=== PATIENT | male | born 1960 | race American Indian/Alaskan Native ===

== ENCOUNTER 2017-01-29 10:14 | Outpatient (CLI) | payer BC, OTHER ==
--- NOTE | 2017-01-29 14:05 | Cat Scan Report ---
CT of the abdomen and pelvis without contrast. History: Prostate carcinoma. Findings: The liver, spleen, pancreas, and gallbladder are normal. The kidneys are normal in size and configuration with no evidence of mass or hydronephrosis. The adrenal glands are normal. There is no adenopathy within the retroperitoneum. The prostate is mildly enlarged. No additional pelvic masses are seen. There is no mesenteric inflammation. No significant bony findings are seen. Impression: Prostatic enlargement, otherwise unremarkable study.
--- NOTE | 2017-01-29 16:46 | Nuclear Medicine Report ---
Nuclear Bone scan. History: Prostate cancer. Findings: The activity pattern throughout the axial and appendicular skeleton is normal. Renal activity is noted bilaterally. Impression: Normal study.
== END 2017-01-29 10:15 | disposition home or self-care (01) ==
LOC: NM 10:14
PROVIDERS: ATTEND Urology
DX: C61 Malignant neoplasm of prostate (principal); N40.0 Benign prostatic hyperplasia without lower urinary tract symptoms
CPT/HCPCS: 74176; 78306; A9503

== ENCOUNTER 2020-12-29 06:14 | Observation (INO) | payer BC, OTHER ==
[2020-12-29 07:29] LABS: Basophils % (Auto) 1.1 % (0.0-1.8); Eosinophils # (Auto) 0.2 K/mm3 (0.0-0.4); Hematocrit 43.7 % (35.5-45.6); Hemoglobin 14.3 gm/dl (11.8-15.2); Lymphocytes # (Auto) 1.7 K/mm3 (1.2-5.4); Lymphocytes % (Auto) 38.5 % (13.4-35.0); Mean Corpuscular HGB Conc 33 % (32-34); Mean Corpuscular Volume 85 fl (84-94); Monocytes # (Auto) 0.4 K/mm3 (0.0-0.8); Monocytes % (Auto) 9.9 % (0.0-7.3); Platelet Count 191 K/mm3 (140-440); Red Blood Count 5.13 M/mm3 (3.65-5.03); Red Cell Distribution Width 13.6 % (13.2-15.2)
[2020-12-29 07:39] LABS: INR 1.01 (0.87-1.13)
[2020-12-29 07:40] LABS: Partial Thromboplastin Time 31.2 Sec. (24.2-36.6)
[2020-12-29 07:52] LABS: BUN/Creatinine Ratio 17; Blood Urea Nitrogen 15 mg/dL (9-20); Calcium 8.9 mg/dL (8.4-10.2); Hemolysis Index 58
[2020-12-29] MEDS ORDERED: ceFAZolin/Water 2 GM/20 ML 2 GM/20 ML SYRINGE IV ONE (08:05)
[2020-12-29] MEDS: SODIUM CHLORIDE 0.9% 1000 ML 1,000 ML IV SCH (08:10)
--- NOTE | 2020-12-29 10:59 | Cat Scan Report ---
CT ABDOMEN AND PELVIS WITH CONTRAST HISTORY: MAIN. Evaluate left renal mass, here for cryoablation COMPARISON: CT abdomen/pelvis from 01/29/2017 TECHNIQUE: CT images of the abdomen and pelvis were obtained following administration of intravenous contrast. All CT scans at this location are performed using CT dose reduction for ALARA by means of automated exposure control. CONTRAST: 100 ml of intravenous contrast administered. FINDINGS: Lungs/bones: Lung bases are clear. There are degenerative changes in the spine and pelvis with no ac ame osseous abnormality identified. Abdomen/pelvis: There is a left sided solid renal mass measuring 2.3 x 1.9 x 2.3 centimeters in maxi mal AP, transverse, and craniocaudal dimensions in the midpole region on image 77 of series #2 and im age 72 of series 601. No other mass is identified. No regional adenopathy or obvious involvement of t he renal vein. The kidneys otherwise appear unremarkable. The liver, gallbladder, spleen, pancreas, adrenals, and proximal GI tract appear unremarkable. Prostate is enlarged and indents the bladder base. Bladder is otherwise unremarkable. No pelvic free fluid. There is mild diverticulosis in the colon with no acute inflammatory change. The terminal ileu m and appendix appear normal. IMPRESSION: 1. Left-sided solid renal mass worrisome for RCC as outlined above. No metastatic disease identified. Signer Name: Anam Butler MD Signed: 12/29/2020 10:55 AM Workstation Name: [email or web address]
[2020-12-29] MEDS ORDERED: PROMETHAZINE 25 MG RECT SUPP PR PRN (11:08)
[2020-12-29] MEDS ORDERED: NALOXONE 0.4 MG/1 ML INJ IV PRN (11:08)
[2020-12-29] MEDS ORDERED: diphenhydrAMINE 50 MG/ML VIAL IV PRN (11:08)
[2020-12-29] MEDS ORDERED: ONDANSETRON 4 MG/2 ML INJ IV PRN (11:08)
--- NOTE | 2020-12-29 11:11 | Short Stay Summary ---
Short Stay Documentation Date of service: 12/29/20 - History Principal diagnosis: Left renal cell carcinoma H&P: obtained from office - Allergies and Medications Current Medications: Allergies No Known Allergies Allergy (Unverified 01/29/17 10:14) Home Medications Medication Instructions Recorded Confirmed Last Taken Type Cetirizine HCl 10 mg PO DAILY 12/29/20 12/29/20 12/27/20 History 10 mg Fluticasone [Flonase] 1 spray INNOSTRIL DAILY 12/29/20 12/29/20 12/28/20 History 1 spray Meloxicam [Mobic] 15 mg PO DAILY 12/29/20 12/29/20 12/27/20 History 15 mg Tamsulosin [Flomax] 0.4 mg PO DAILY 12/29/20 12/29/20 12/27/20 History 0.4mg Active Medications Sodium Chloride (Nacl 0.9% 1000 Ml) 1,000 mls @ 42 mls/hr IV DIRECT MARTHA Last Admin: 12/29/20 08:10 Dose: 42 mls/hr Documented by: - Brief post op/procedure progress note Date of procedure: 12/29/20 Pre-op diagnosis: Left renal cell carcinoma Post-op diagnosis: same Procedure: Renal mass cryoablation Anesthesia: local Surgeon: MJ IBANEZ Estimated blood loss: none Pathology: none Condition: stable - Disposition Condition at discharge: Good Disposition: DC/TX-02 [id number]-TRM GEN HOSP IP Short Stay Discharge Plan Activity: advance as tolerated Weight Bearing Status: Weight Bear as Tolerated Diet: regular Wound: keep clean and dry, per your surgeon's advice Follow up with: BELKIS CRESPO MD [Primary Care Provider] - 7 Days
--- NOTE | 2020-12-29 11:16 | Operative Report ---
Operative Report Operative Report: Exam: Left renal mass cryoablation Clinical indication: Patient with a history of left renal mass with imaging findings on MRI and CT consistent with renal cell carcinoma. Procedure has been delayed secondary to COVID-19 pandemic. Date: 12/29/2020 Procedure: Following an explanation of the risk, benefits and alternatives; written informed consent was obtained. The patient was brought to the CT suite and placed in prone position on the gantry. An initial CT scan of the abdomen and pelvis was performed with IV contrast for tumor localization and sizing criteria. The patient was noted to have a 1.8 to 1.9 cm exophytic posterior mass arising from the midpole of his left kidney. No adjacent structures were identified being in danger of damage during cryoablation. The patient was then removed from the CT scanner. Following the induction of anesthesia. The patient was returned to the CT scanner and placed in prone position once again. Initial cigarette book maker images of the back and flank were performed and an appropriate access site was chosen. The patient was prepped and draped in the usual sterile fashion. 1% lidocaine was used for anesthesia. Under ultrasound guidance, a 21-gauge 15 cm needle was used for localization and advanced under CT guidance to the center aspect of the left renal cell mass. On ce localization was complete. A 14gauge cryoablation probe was then advanced to the margin of the renal mass. Using intermittent CT guidance, the probe was advanced into the mass with the tip of the probe on the medial side of the mass. Imaging was confirmed with CT guidance. With the probe in position. An initial 10-minute freeze cycle was initiated. At approximately the 6-minute brody, surveillance CT scan was performed which demonstrated the anterior posterior and lateral aspects of the mass were well within the ice ball. The ice ball came to the margin of the mass immediately. After the thaw cycle, the probe was repositioned medially 1/2 cm and a second 10-minute freeze cycle initiated. Surveillance imaging demonstrated appropriate coverage of the entire tumor. Following cryoablation, the probe was withdrawn approximately 2 cm proximally and hemostasis achieved using the cautery function of the cryoablation probe. The probe was then removed intact. Posttreatment images demonstrated appropriate treatment with no significant perinephric hematoma. The patient tolerated the procedure well. There were no immediate postprocedure complications. During the second freeze cycle, the patient experienced two episodes of bigeminy. Anesthesia was provided by anesthesia services. Continuous cardiopulmonary monitoring was utilized. Impression: 1) Left renal mass cryoablation as described.
[2020-12-29] MEDS ORDERED: MORPHINE/NS 30 MG-30 ML PCA INJ IV SCH (12:00)
[2020-12-29] MEDS ORDERED: ALBUTEROL 2.5 MG/3 ML NEBU IH PRN (12:13)
--- NOTE | 2020-12-29 12:15 | History and Physical Report ---
History of Present Illness Chief complaint: They said my heart not beating normally History of present illness: 60 YO Male with Obesity, RITA, OA admitted directly postoperatively. Pt was found to have an abnormal cardiac rhythm. Pt seen and evaluated in his room. Pt denies fever, chills, CP, palpitations, NVD, Trauma, productive cough, skin rash, or recent ill contacts. No reported nursing events. Pt denies pain. Past History Past Medical History: other (see HPI) Past Surgical History: Other (Left renal cryoablation) Social history: . denies: smoking, alcohol abuse, prescription drug abuse Family history: hypertension Medications and Allergies Allergies Allergy/AdvReac Type Severity Reaction Status Date / Time No Known Allergies Allergy Unverified 01/29/17 10:14 Home Medications Medication Instructions Recorded Confirmed Last Taken Type Cetirizine HCl 10 mg PO DAILY 12/29/20 12/29/20 12/27/20 History 10 mg Ciprofloxacin HCl [Ciprofloxacin 750 mg PO QDAY #7 tablet 12/29/20 Unknown Rx TAB] Fluticasone [Flonase] 1 spray INNOSTRIL DAILY 12/29/20 12/29/20 12/28/20 History 1 spray Meloxicam [Mobic] 15 mg PO DAILY 12/29/20 12/29/20 12/27/20 History 15 mg Ondansetron [Zofran Odt] 4 mg PO Q8HR PRN #20 tab.rapdis 12/29/20 Unknown Rx Tamsulosin [Flomax] 0.4 mg PO DAILY 12/29/20 12/29/20 12/27/20 History 0.4mg oxyCODONE /ACETAMINOPHEN [Percocet 1 tab PO Q6HR PRN #30 tablet 12/29/20 Unknown Rx 5/325] Active Meds: Active Medications Albuterol (Albuterol 2.5 Mg/3 Ml Nebu) 2.5 mg IH Q3HRT PRN PRN Reason: Shortness Of Breath Diphenhydramine HCl (Diphenhydramine 50 Mg/Ml Vial) 25 mg IV Q4H PRN PRN Reason: Itching Sodium Chloride (Nacl 0.9% 1000 Ml) 1,000 mls @ 42 mls/hr IV DIRECT MARTHA Last Admin: 12/29/20 08:10 Dose: 42 mls/hr Documented by: Morphine Sulfate (Morphine/Ns 30 Mg-30 Ml Manager Of Marketing Inj) 0 mg IV DIRECT MARTHA; Protocol Naloxone HCl (Naloxone 0.4 Mg/1 Ml Inj) 0.1 mg IV Q2MIN PRN PRN Reason: Res Rate </= 8 or 02 SAT < 92% Ondansetron HCl (Ondansetron 4 Mg/2 Ml Inj) 4 mg IV Q8H PRN PRN Reason: N/V unrelieved by Reglan Promethazine HCl (Promethazine 25 Mg Rect Supp) 25 mg MD Q6H PRN PRN Reason: Nausea And Vomiting Senna/Docusate Sodium (Sennosides/Docusate Sodium 8.6/50 Mg Tab) 1 tab PO BID MARTHA Sodium Chloride (Sodium Chloride 0.9% 10 Ml Flush Syringe) 10 ml IV BID MARTHA Sodium Chloride (Sodium Chloride 0.9% 10 Ml Flush Syringe) 10 ml IV PRN PRN PRN Reason: LINE FLUSH Review of Systems Constitutional: no weight loss, no weight gain, no fever, no chills, no sweats Ears, nose, mouth and throat: no ear pain, no decreased hearing, no nose pain, no nasal congestion, no nasal discharge Cardiovascular: no chest pain, no orthopnea, no palpitations, no rapid/irregular heart beat, no edema, no syncope Respiratory: no cough, no cough with sputum, no excessive sputum, no hemoptysis Gastrointestinal: no abdominal pain, no nausea, no constipation, no hematemesis Genitourinary Male: no hematuria, no flank pain, no discharge Rectal: no pain, no incontinence, no bleeding Musculoskeletal: no neck stiffness, no neck pain, no shooting arm pain, no shooting leg pain, no leg numbness/tingling Integumentary: no rash, no pruritis, no redness, no sores Neurological: no paralysis, no weakness, no parathesias, no tingling, no seizures Psychiatric: no anxiety, no memory loss, no sleep disturbances, no insomnia, no hypersomnia, no change in appetite, no change in libido Endocrine: no cold intolerance, no heat intolerance, no excessive thirst, no polydipsia, no nocturia, no flushing Hematologic/Lymphatic: no easy bruising, no easy bleeding Allergic/Immunologic: no urticaria, no allergic rhinitis Exam - Constitutional Vitals: Temp Pulse Resp BP Pulse Ox 98.3 F 59 L 16 109/70 98 12/29/20 07:46 12/29/20 09:39 12/29/20 09:39 12/29/20 09:39 12/29/20 09:39 General appearance: Present: no acute distress, well-nourished - EENT Eyes: Present: PERRL ENT: hearing intact, clear oral mucosa - Neck Neck: Present: supple, normal ROM - Respiratory Respiratory effort: normal Respiratory: bilateral: CTA - Cardiovascular Heart Sounds: Present: S1 & S2. Absent: rub, click - Extremities Extremities: pulses symmetrical, No edema Peripheral Pulses: within normal limits - Abdominal General gastrointestinal: Present: soft, non-tender, non-distended, normal bowel sounds Male genitourinary: Present: normal - Integumentary Integumentary: Present: clear, warm, dry - Musculoskeletal Musculoskeletal: gait normal, strength equal bilaterally - Psychiatric Psychiatric: appropriate mood/affect, intact judgment & insight - Neurologic Neurologic: CNII-XII intact, moves all extremities Results - Labs CBC & Chem 7: 12/29/20 07:11 12/29/20 07:11 Labs: Abnormal lab results 12/29/20 12/29/20 Range/Units 07:11 07:11 WBC 4.3 L (4.5-11.0) K/mm3 RBC 5.13 H (3.65-5.03) M/mm3 Lymph % (Auto) 38.5 H (13.4-35.0) % [place] % (Auto) 9.9 H (0.0-7.3) % Eos % (Auto) 5.0 H (0.0-4.3) % Glucose 117 H (75-100) mg/dL Assessment and Plan - Patient Problems (1) Atrial bigeminy Current Visit: No Status: Acute Plan to address problem: Cardiology consulted, continue medical management as per cardiology team. (2) Obesity Current Visit: Yes Status: Acute Plan to address problem: balanced diet, increased physical activity at discharge. (3) RITA (obstructive sleep apnea) Current Visit: Yes Status: Acute Plan to address problem: CPAP qhs, supportive care. (4) DVT prophylaxis Current Visit: Yes Status: Acute Plan to address problem: SCD to BLE while in bed.
--- NOTE | 2020-12-29 18:16 | Event Note ---
Date: 12/29/20 Twelve-lead EKG shows a sinus bradycardia with nonspecific early repolarization ST changes, no ischemia or infarction. Continued remote telemetry monitoring, and avoid AV robe blocking agents.
[2020-12-29] MEDS: SENNOSIDES/DOCUSATE SODIUM 8.6/50 MG TAB PO SCH (21:57)
[2020-12-30] MEDS: SODIUM CHLORIDE 0.9% 1000 ML 1,000 ML IV SCH (05:29)
[2020-12-30] MEDS: SENNOSIDES/DOCUSATE SODIUM 8.6/50 MG TAB PO SCH (09:42)
[2020-12-30] MEDS ORDERED: TAMSULOSIN 0.4 MG CAP PO SCH (10:00)
[2020-12-30] MEDS ORDERED: CETIRIZINE 10 MG TAB PO SCH (10:00)
--- NOTE | 2020-12-30 11:57 | Progress Note ---
Assessment and Plan Transient ectopic beats post operatively Status post left renal mass cryoablation 12-lead EKG shows a sinus bradycardia with nonspecific early repolarization ST changes, no ischemia or infarction. Recommendations: Avoid AV robe blocking agents. Otherwise, conservative cardiac management. Subjective Date of service: 12/30/20 Principal diagnosis: Left renal cell carcinoma Interval history: Patient 1 day post left renal mass cryoablation. He is resting in bed and appears comfortable. No cardiac complaints. Telemetry currently shows sinus rhythm, rate 59. Objective Vital Signs Temp Pulse Pulse Resp Resp BP BP 12/30/20 10:00 57 L 10 L 129/75 12/30/20 09:00 62 15 114/68 12/30/20 08:00 49 L 59 L 13 130/78 12/30/20 07:00 49 L 11 L 125/75 12/30/20 06:00 48 L 16 129/75 12/30/20 05:00 48 L 12 133/72 12/30/20 04:10 52 L 12/30/20 04:00 49 L 49 L 16 118/73 12/30/20 03:52 97.2 F L 12/30/20 03:00 49 L 11 L 118/73 12/30/20 02:00 49 L 13 126/75 12/30/20 01:00 52 L 52 L 11 L 122/64 12/30/20 00:00 49 L 12 131/72 12/29/20 23:40 56 L 12/29/20 23:39 98.0 F 12/29/20 23:04 57 L 22 134/77 12/29/20 23:00 51 L 16 134/77 12/29/20 22:02 16 12/29/20 22:00 59 L 12 147/78 12/29/20 21:00 53 L 12 146/81 12/29/20 20:00 97.6 F 54 L 12 143/75 12/29/20 19:59 16 12/29/20 19:54 55 L 16 12/29/20 19:50 16 12/29/20 19:45 55 L 12/29/20 19:00 52 L 15 135/76 12/29/20 18:00 54 L 14 136/77 12/29/20 17:00 56 L 13 139/65 12/29/20 16:00 99 F 51 L 16 141/79 12/29/20 15:00 53 L 13 134/73 12/29/20 14:58 16 12/29/20 14:00 51 L 18 132/73 12/29/20 13:15 97.8 F 53 L 15 128/76 12/29/20 13:00 51 L 10 L 127/67 12/29/20 12:45 49 L 12 131/75 12/29/20 12:30 57 L 12 124/69 12/29/20 12:15 52 L 11 L 133/70 12/29/20 12:00 50 L 12 141/75 Pulse Ox 12/30/20 10:00 97 12/30/20 09:00 96 12/30/20 08:00 95 12/30/20 07:00 95 12/30/20 06:00 98 12/30/20 05:00 98 12/30/20 04:10 12/30/20 04:00 95 12/30/20 03:52 12/30/20 03:00 94 12/30/20 02:00 97 12/30/20 01:00 97 12/30/20 00:00 95 12/29/20 23:40 12/29/20 23:39 12/29/20 23:04 97 12/29/20 23:00 96 12/29/20 22:02 12/29/20 22:00 97 12/29/20 21:00 98 12/29/20 20:00 96 12/29/20 19:59 12/29/20 19:54 96 12/29/20 19:50 12/29/20 19:45 12/29/20 19:00 96 12/29/20 18:00 97 12/29/20 17:00 97 12/29/20 16:00 97 12/29/20 15:00 95 12/29/20 14:58 12/29/20 14:00 97 12/29/20 13:15 96 12/29/20 13:00 99 12/29/20 12:45 98 12/29/20 12:30 97 12/29/20 12:15 98 12/29/20 12:00 99 - Physical Examination General: No Apparent Distress HEENT: Positive: PERRL Neck: Positive: trachea midline Cardiac: Positive: Reg Rate and Rhythm Lungs: Positive: Normal Breath Sounds Neuro: Positive: Grossly Intact
--- NOTE | 2020-12-30 13:33 | Electrocardiograph Report ---
[facility] Test Date: 2020-12-29 Test Time: 11:32:31 Pat Name: ERVIN FLOWERS Department: Room: A264 Gender: M Drafter Mechanical: ARIANNA : 1960 Requested By: MJ IBANEZ Order Number: [id number] Reading MD: Jed Cordero Measurements Intervals [place] Rate: 49 P: 73 ND: 161 QRS: 34 QRSD: 74 T: 42 QT: 417 QTc: 378 Interpretive Statements Sinus bradycardia Early repolarization ST changes No previous ECG available for comparison Electronically Signed On 12-30-2020 13:32:31 EDT by Jed Cordero
--- NOTE | 2020-12-30 14:53 | Short Stay Summary ---
Short Stay Documentation Date of service: 12/30/20 Narrative H&P: See H&P - History H&P: obtained from office Past Medical History: other (see HPI) Past Surgical History: Other (Left renal cryoablation) Social history: , no smoking, no alcohol abuse, no prescription drug abuse - Allergies and Medications Current Medications: Allergies No Known Allergies Allergy (Unverified 01/29/17 10:14) Home Medications Medication Instructions Recorded Confirmed Last Taken Type Cetirizine HCl 10 mg PO DAILY 12/29/20 12/29/20 12/27/20 History 10 mg Ciprofloxacin HCl [Ciprofloxacin 750 mg PO QDAY #7 tablet 12/29/20 Unknown Rx TAB] Fluticasone [Flonase] 1 spray INNOSTRIL DAILY 12/29/20 12/29/20 12/28/20 History 1 spray Meloxicam [Mobic] 15 mg PO DAILY 12/29/20 12/29/20 12/27/20 History 15 mg Ondansetron [Zofran Odt] 4 mg PO Q8HR PRN #20 tab.rapdis 12/29/20 Unknown Rx Tamsulosin [Flomax] 0.4 mg PO DAILY 12/29/20 12/29/20 12/27/20 History 0.4mg oxyCODONE /ACETAMINOPHEN [Percocet 1 tab PO Q6HR PRN #30 tablet 12/29/20 Unknown Rx 5/325] Active Medications Albuterol (Albuterol 2.5 Mg/3 Ml Nebu) 2.5 mg IH Q3HRT PRN PRN Reason: Shortness Of Breath Cetirizine HCl (Cetirizine 10 Mg Tab) 10 mg PO DAILY MARTHA Last Admin: 12/30/20 09:42 Dose: 10 mg Documented by: Diphenhydramine HCl (Diphenhydramine 50 Mg/Ml Vial) 25 mg IV Q4H PRN PRN Reason: Itching Sodium Chloride (Nacl 0.9% 1000 Ml) 1,000 mls @ 42 mls/hr IV DIRECT MARTHA Last Admin: 12/30/20 05:29 Dose: 42 mls/hr Documented by: Morphine Sulfate (Morphine/Ns 30 Mg-30 Ml Sas Statistical Programmer Inj) 0 mg IV DIRECT MARTHA; Protocol Last Admin: 12/29/20 12:58 Dose: 1 cartstart Documented by: Naloxone HCl (Naloxone 0.4 Mg/1 Ml Inj) 0.1 mg IV Q2MIN PRN PRN Reason: Res Rate </= 8 or 02 SAT < 92% Ondansetron HCl (Ondansetron 4 Mg/2 Ml Inj) 4 mg IV Q8H PRN PRN Reason: N/V unrelieved by Reglan Promethazine HCl (Promethazine 25 Mg Rect Supp) 25 mg MN Q6H PRN PRN Reason: Nausea And Vomiting Senna/Docusate Sodium (Sennosides/Docusate Sodium 8.6/50 Mg Tab) 1 tab PO BID [facility] Last Admin: 12/30/20 09:42 Dose: 1 tab Documented by: Sodium Chloride (Sodium Chloride 0.9% 10 Ml Flush Syringe) 10 ml IV BID [facility] Last Admin: 12/30/20 09:42 Dose: 10 ml Documented by: Sodium Chloride (Sodium Chloride 0.9% 10 Ml Flush Syringe) 10 ml IV PRN PRN PRN Reason: LINE FLUSH Tamsulosin HCl (Tamsulosin 0.4 Mg Cap) 0.4 mg PO DAILY [facility] Last Admin: 12/30/20 09:42 Dose: 0.4 mg Documented by: - Physical exam Breasts: deferred Extremities: pulses intact, normal temperature - Hospital course Hospital course: Exam: Left renal mass cryoablation Clinical indication: Patient with a history of left renal mass with imaging findings on MRI and CT consistent with renal cell carcinoma. Procedure has been delayed secondary to COVID-19 pandemic. Date: 12/29/2020 Procedure: Following an explanation of the risk, benefits and alternatives; written informed consent was obtained. The patient was brought to the CT suite and placed in prone position on the gantry. An initial CT scan of the abdomen and pelvis was performed with IV contrast for tumor localization and sizing criteria. The patient was noted to have a 1.8 to 1.9 cm exophytic posterior mass arising from the midpole of his left kidney. No adjacent structures were identified being in danger of damage during cryoablation. The patient was then removed from the CT scanner. Following the induction of anesthesia. The patient was returned to the CT scanner and placed in prone position once again. Initial slitter creaser slotter helper images of the back and flank were performed and an appropriate access site was chosen. The patient was prepped and draped in the usual sterile fashion. 1% lidocaine was used for anesthesia. Under ultrasound guidance, a 21-gauge 15 cm needle was used for localization and advanced under CT guidance to the center aspect of the left renal cell mass. Once localization was complete. A 14gauge cryoablation probe was then advanced to the margin of the renal mass. Using intermittent CT guidance, the probe was advanced into the mass with the tip of the probe on the medial side of the mass. Imaging was confirmed with CT guidance. With the probe in position. An initial 10-minute freeze cycle was initiated. At approximately the 6-minute brody, surveillance CT scan was performed which demonstrated the anterior posterior and lateral aspects of the mass were well within the ice ball. The ice ball came to the margin of the mass immediately. After the thaw cycle, the probe was repositioned medially 1/2 cm and a second 10-minute freeze cycle initiated. Surveillance imaging demonstrated appropriate coverage of the entire tumor. Following cryoablation, the probe was withdrawn approximately 2 cm proximally and hemostasis achieved using the cautery function of the cryoablation probe. The probe was then removed intact. Posttreatment images demonstrated appropriate treatment with no significant perinephric hematoma. The patient tolerated the procedure well. There were no immediate postprocedure complications. During the second freeze cycle, the patient experienced two episodes of bigeminy. Anesthesia was provided by anesthesia services. Continuous cardiopulmonary monitoring was utilized. Impression: 1) Left renal mass cryoablation as described. The patient had post procedure arrhythmias that have now corrected. Cardiology consulted and determined that they were related to catecholamine release from the procedure, which is normal and the patient can follow up, in the outpatient setting with his regular hospital tray service worker. No additional complications. - Disposition Condition at discharge: Good Disposition: DC-01 TO HOME OR SELFCARE Short Stay Discharge Plan Follow up with: TIARA DUGGAN MD [Staff Physician] - 7 Days MJ IBANEZ MD [Staff Physician] - 7 Days (3 months) Prescriptions: Ciprofloxacin HCl [Ciprofloxacin TAB] 750 mg PO QDAY #7 tablet oxyCODONE /ACETAMINOPHEN [Percocet 5/325] 1 tab PO Q6HR PRN #30 tablet PRN Reason: Pain Ondansetron [Zofran Odt] 4 mg PO Q8HR PRN #20 tab.rapdis PRN Reason: Nausea
--- NOTE | 2020-12-30 14:53 | Progress Note ---
Assessment and Plan Doing well post procedure day #! Pain is controlled discharge home today Subjective Date of service: 12/30/20 Principal diagnosis: Left renal cell carcinoma Interval history: Did well overnight. Tolerated diet. Pain well controlled. No further a rrhythmias. Objective - Constitutional Vitals: Vital Signs - 12hr 12/30/20 12/30/20 12/30/20 03:00 03:52 04:00 Temperature 97.2 F L Pulse Rate 49 L 49 L Pulse Rate [ 49 L From Monitor] Respiratory 11 L 16 Rate Blood Pressure 118/73 118/73 O2 Sat by Pulse 94 95 Oximetry 12/30/20 12/30/20 12/30/20 04:10 05:00 06:00 Temperature Pulse Rate 52 L 48 L 48 L Pulse Rate [ From Monitor] Respiratory 12 16 Rate Blood Pressure 133/72 129/75 O2 Sat by Pulse 98 98 Oximetry 12/30/20 12/30/20 12/30/20 07:00 08:00 09:00 Temperature Pulse Rate 49 L 49 L 62 Pulse Rate [ 59 L From Monitor] Respiratory 11 L 13 15 Rate Blood Pressure 125/75 130/78 114/68 O2 Sat by Pulse 95 95 96 Oximetry 12/30/20 12/30/20 12/30/20 10:00 11:00 12:00 Temperature Pulse Rate 57 L 56 L 63 Pulse Rate [ From Monitor] Respiratory 10 L 13 14 Rate Blood Pressure 129/75 123/71 123/71 O2 Sat by Pulse 97 97 93 Oximetry 12/30/20 12/30/20 12:10 13:00 Temperature 97.4 F L Pulse Rate 58 L Pulse Rate [ 58 L From Monitor] Respiratory 18 Rate Blood Pressure 119/66 O2 Sat by Pulse 96 Oximetry General appearance: Present: no acute distress - Respiratory Respiratory effort: normal - Breasts Breasts: deferred - Cardiovascular Rhythm: regular Extremities: pulses intact, normal temperature - Gastrointestinal General gastrointestinal: Present: soft, non-tender, non-distended - Genitourinary Male genitourinary: deferred - Integumentary Integumentary: clear - Labs CBC & Chem 7: 12/29/20 07:11 12/29/20 07:11 Medications & Allergies - Medications Allergies/Adverse Reactions: Allergies No Known Allergies Allergy (Unverified 01/29/17 10:14) Home Medications: Home Medications Medication Instructions Recorded Confirmed Last Taken Type Cetirizine HCl 10 mg PO DAILY 12/29/20 12/29/20 12/27/20 History 10 mg Ciprofloxacin HCl [Ciprofloxacin 750 mg PO QDAY #7 tablet 12/29/20 Unknown Rx TAB] Fluticasone [Flonase] 1 spray INNOSTRIL DAILY 12/29/20 12/29/20 12/28/20 History 1 spray Meloxicam [Mobic] 15 mg PO DAILY 12/29/20 12/29/20 12/27/20 History 15 mg Ondansetron [Zofran Odt] 4 mg PO Q8HR PRN #20 tab.rapdis 12/29/20 Unknown Rx Tamsulosin [Flomax] 0.4 mg PO DAILY 12/29/20 12/29/20 12/27/20 History 0.4mg oxyCODONE /ACETAMINOPHEN [Percocet 1 tab PO Q6HR PRN #30 tablet 12/29/20 Unknown Rx 5/325] Active Medications: Generic Name Dose Route Start Last Admin Trade Name Freq PRN Reason Stop Dose Admin Albuterol 2.5 mg 12/29/20 12:13 Albuterol 2.5 Mg/3 Ml Nebu IH Q3HRT PRN Shortness Of Breath Cetirizine HCl 10 mg 12/30/20 10:00 12/30/20 09:42 Cetirizine 10 Mg Tab PO 10 mg DAILY MARTHA Administration Diphenhydramine HCl 25 mg 12/29/20 11:08 Diphenhydramine 50 Mg/Ml Vial IV Q4H PRN Itching Sodium Chloride 1,000 mls @ 42 mls/hr 12/29/20 07:00 12/30/20 05:29 Nacl 0.9% 1000 Ml IV 42 mls/hr DIRECT MARTHA Administration Morphine Sulfate 0 mg 12/29/20 12:00 12/29/20 12:58 Morphine/Ns 30 Mg-30 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 Inj IV 1 cartstart DIRECT MARTHA Administration Protocol Naloxone HCl 0.1 mg 12/29/20 11:08 Naloxone 0.4 Mg/1 Ml Inj IV Q2MIN PRN Res Rate </= 8 or 02 SAT < 92% Ondansetron HCl 4 mg 12/29/20 11:08 Ondansetron 4 Mg/2 Ml Inj IV Q8H PRN N/V unrelieved by Reglan Promethazine HCl 25 mg 12/29/20 11:08 Promethazine 25 Mg Rect Supp MI Q6H PRN Nausea And Vomiting Senna/Docusate Sodium 1 tab 12/29/20 22:00 12/30/20 09:42 Sennosides/Docusate Sodium 8.6/50 Mg Tab PO 1 tab BID MARTHA Administration Sodium Chloride 10 ml 12/29/20 22:00 12/30/20 09:42 Sodium Chloride 0.9% 10 Ml Flush Syringe IV 10 ml BID MARTHA Administration Sodium Chloride 10 ml 12/29/20 12:13 Sodium Chloride 0.9% 10 Ml Flush Syringe IV PRN PRN LINE FLUSH Tamsulosin HCl 0.4 mg 12/30/20 10:00 12/30/20 09:42 Tamsulosin 0.4 Mg Cap PO 0.4 mg DAILY MARTHA Administration
--- NOTE | 2020-12-30 14:56 | Discharge Summary ---
Providers - Providers Date of Admission: 12/29/20 12:13 Date of discharge: 12/30/20 Attending physician: MJ IBANEZ 12/29/20 11:07 Consult to Physician [CONS] Routine Comment: Consulting Provider: TIARA DUGGAN Physician Instructions: Reason For Exam: episode of bigeminy during procedure Primary care physician: BELKIS CRESPO Hospitalization Condition: Good Hospital course: 60 YO Male with Obesity, OA history of left renal mass status post cryoablation admitted directly postoperatively as Pt was found to have an abnormal cardiac rhythm. Patient was admitted for observation, cardiology was consulted. Transient ectopy repeats reported postoperative day which was resolved. 12-lead EKG shows a sinus bradycardia with nonspecific early repolarization ST changes, no ischemia or infarction. Cardiology recommended no AV robe blocking agents. Did not recommend any cardiac intervention. Patient was then discharged home in stable condition with outpatient follow-up. Disposition: TO HOME OR SELFCARE Final Discharge Diagnosis (Prints w/discharge instructions): (1) Atrial bigeminy. (2) Obesity. (3) Left renal mass cryoablation Time spent for discharge: 34 minutes Core Measure Documentation - Palliative Care Palliative Care/ Comfort Measures: Not Applicable - Core Measures Any of the following diagnoses?: none Exam - Physical Exam Narrative exam: GENERAL: well-developed and well-nourished AAM lying on bed appeared to be in no discomfort. HEENT: Normocephalic. Atraumatic. No conjunctival congestion or icterus. Patient has moist mucous membranes. NECK: Supple. Trachea midline. CHEST/LUNGS: Clear to auscultated bilaterally, breathing nonlabored. No wheezes crackles or rhonchi. HEART/CARDIOVASCULAR: Regular in rate and rhythm. S1 and S2 positive. ABDOMEN: Abdomen is soft, nontender. Patient has normal bowel sounds. SKIN: There is no rash. Warm and dry. NEURO: No focal motor deficit. Follows command. MUSCULOSKELETAL: No joint effusion or tenderness. EXTRIMITY: No edema, no cyanosis or clubbing. PSYCH: Cooperative. - Constitutional Vitals: Temp Pulse Resp BP Pulse Ox 97.4 F L 58 L 18 119/66 96 12/30/20 12:10 12/30/20 13:00 12/30/20 13:00 12/30/20 13:00 12/30/20 13:00 Plan Activity: advance as tolerated Weight Bearing Status: Weight Bear as Tolerated Diet: low fat, low salt Follow up with: TIARA DUGGAN MD [Staff Physician] - 7 Days MJ IBANEZ MD [Staff Physician] - 7 Days (3 months) Prescriptions: Ciprofloxacin HCl [Ciprofloxacin TAB] 750 mg PO QDAY #7 tablet oxyCODONE /ACETAMINOPHEN [Percocet 5/325] 1 tab PO Q6HR PRN #30 tablet PRN Reason: Pain Ondansetron [Zofran Odt] 4 mg PO Q8HR PRN #20 tab.rapdis PRN Reason: Nausea
[2020-12-30 15:13] VITALS: BP 125/75
--- NOTE | 2021-01-05 15:51 | Cat Scan Report ---
PLEASE SEE THE [facility]
== END 2020-12-30 15:53 | disposition home or self-care (01) ==
LOC: CT 06:14 → CATHLABREC 06:14 → IMCU 12:13
PROVIDERS: ADMIT Radiology Diagnostic Radiology; ATTEND Radiology Diagnostic Radiology
DX: I49.8 Other specified cardiac arrhythmias (principal); C64.2 Malignant neoplasm of left kidney, except renal pelvis; E66.9 Obesity, unspecified; G47.33 Obstructive sleep apnea (adult) (pediatric); M19.90 Unspecified osteoarthritis, unspecified site; R00.8 Other abnormalities of heart beat; Z68.33 Body mass index [BMI] 33.0-33.9, adult
CPT/HCPCS: 36415; 50593; 74177; 77013; 80048; 85025; 85610; 85730; 93005; 96361; 96374; G0378; J0690; J2270; J7030; Q9967